=== PATIENT | female | born 1955 | race Caucasian/White ===

== ENCOUNTER 2016-08-20 07:05 | Observation (INO) ==
[2016-08-20] MEDS ORDERED: *HR* Morphine 2 MG/ML SYRINGE IVP ONE (07:24)
[2016-08-20] MEDS ORDERED: Ketorolac 30 MG/ML VIAL IVP ONE (07:24)
[2016-08-20] MEDS ORDERED: Ondansetron 4 MG/2 ML VIAL IVP ONE (07:24)
--- NOTE | 2016-08-20 07:27 | Emergency Department Note ---
Disposition Clinical Impression: Sigmoid diverticulitis, UTI (urinary tract infection) Disposition: Admitted As Inpatient Condition: Good Referrals: Madison Ambriz CNP [Primary Care Provider] - Forms: Work/School Release, ED Satisfaction Letter Time of Disposition: 08:43 Abdominal Pain HPI - General Chief Complaint: ED Abdominal Pain Stated Complaint: LLQ pain, pressure Time Seen by Provider: 08/20/16 07:20 Source: patient Mode of arrival: ambulatory Limitations: no limitations Nursing Notes Reviewed: Yes Vital Signs Reviewed: Yes - History of Present Illness HPI Narrative: 60 Year old female with LLQ abdomenal pain for 2 days, worse today. Nausea, no vomiting. No constipation or diarrhea. No fever. Pt Subjective Complaint: abdominal pain Onset (ago): day(s) (2) Consistency: constant Location: LLQ Pain Severity: severe Pain Scale: 10 Quality: sharp Radiation: back Migration to: no migration Improves with: nothing Worsens with: movement Associated symptoms: Reports: nausea. Denies: vomiting, diarrhea, fever, chills , constipation, dysuria Treatments prior to arrival: none - Related Data Home Medications Medication Instructions Recorded Confirmed Cetirizine HCl [All Day Allergy] 10 mg PO DAILY 05/07/16 08/20/16 Cholecalciferol (Vitamin D3) 1,000 unit PO DAILY 05/07/16 08/20/16 [Vitamin D3] Furosemide [Lasix] 40 mg PO DAILY 05/07/16 08/20/16 Garcinia Cambogia Chromium 1 cap PO DAILY 05/07/16 08/20/16 Ibuprofen [Motrin] 600 mg PO Q8HR PRN 05/07/16 08/20/16 Lisinopril [Zestril] 20 mg PO DAILY 05/07/16 08/20/16 Multivits,Ca,Min/Iron/FA/Lycop 1 tab PO DAILY 05/07/16 08/20/16 [Centrum Men's Tablet] Omeprazole [PriLOSEC] 40 mg PO DAILY 05/07/16 08/20/16 Potassium Chloride [K-Tab ER] 10 meq PO DAILY 05/07/16 08/20/16 Simvastatin [Zocor] 20 mg PO HS 05/07/16 08/20/16 Vitamin E 1,000 unit PO DAILY 05/07/16 08/20/16 Metformin [Glucophage] 500 mg PO BIDWM 08/20/16 08/20/16 Allergies Allergy/AdvReac Type Severity Reaction Status Date / Time latex AdvReac Itching Verified 08/20/16 07:07 Sulfa (Sulfonamide AdvReac See Verified 08/20/16 07:07 Antibiotics) Comments All systems ED: reviewed and negative except as stated. Constitutional: Denies: fever, chills ENT ED: Denies: ear pain, throat pain Cardiovascular: Denies: chest pain Respiratory: Denies: cough, dyspnea Gastrointestinal: Reports: abdominal pain, nausea. Denies: vomiting, diarrhea Genitourinary: Denies: urgency, dysuria, frequency, hematuria Musculoskeletal: Reports: back pain Integumentary: Denies: rash Abdominal Pain PMH - Past Medical History Medical history: Reports: arthritis, diabetes, GERD, hyperlipidemia, hypertension, other Female Surgical History: Reports: , cholecystectomy, herniorrhaphy, hysterectomy Psychiatric history: Reports: no psych history - Social History Smoking status: Never smoker Alcohol use: Reports: none, occasionally Drug use: Reports: none Physical Exam - General Limitations: no limitations General appearance: alert Course - Reevaluation(s) Reevaluation #1: Discussed with Dr. Cunningham. He has accepted the patient for admission. Time: 08:50 Vital Signs Temperature 100.1 F H 08/20/16 07:09 Pulse Rate 95 08/20/16 07:09 Respiratory Rate 18 08/20/16 07:09 Blood Pressure 126/73 08/20/16 07:09 O2 Sat by Pulse Oximetry 95 08/20/16 07:09 Temperature 100.1 F H 08/20/16 07:10 Pulse Rate 95 08/20/16 07:10 Respiratory Rate 18 08/20/16 07:10 Blood Pressure 126/73 08/20/16 07:10 O2 Sat by Pulse Oximetry 95 08/20/16 07:10 Oxygen Delivery Oxygen Delivery Room Air Abdominal Pain - MDM Narrative Medical decision making narrative: Differential includes but is not limited to urinary tract infection, diverticulitis, bowel obstruction, pyelonephritis, cystitis Exam and CT findings are consistent with acute uncomplicated diverticulitis. She does have low-grade fever and elevated white blood cell count. She has been started on IV Cipro and Flagyl. I spoke with Dr. Cunningham and he will accept for admission to a MedSurg bed for continued antibiotic therapy. The patient is agreeable with this plan. - Lab Data Lab results reviewed: Yes I reviewed the patient's lab results. Result diagrams: 08/20/16 07:38 08/20/16 07:38 Lab Results 08/20/16 08/20/16 08/20/16 Range/Units 07:22 07:22 07:38 WBC 16.5 H (4.3-11.1) K/mcL RBC 5.10 H (3.82-4.97) M/mcL Hgb 13.9 (11.5-15.4) g/dL Hct 42.2 (35.3-44.9) % MCV 82.7 L (83.0-100.0) fL MCH 27.3 L (28.0-33.3) pg MCHC 32.9 (31.6-35.5) g/dL RDW 14.1 (11.5-14.5) % Plt Count 215 (140-400) K/mcL MPV 10.8 (9.4-12.4) fL Immature Gran % 0.4 (0-4) % Seg Neutrophils % 81.1 % Lymphocytes % 12.2 % Monocytes % 5.7 % Eosinophils % 0.4 % Basophils % 0.2 % Neutrophils # 13.4 H (1.6-8.9) K/mcL Lymphocytes # 2.0 (0.6-4.6) K/mcL Monocytes # 0.9 (0.0-1.3) K/mcL Eosinophils # 0.1 (0.0-0.6) K/mcL Basophils # 0.0 (0.0-0.2) K/mcL Sodium (136-145) mEq/L Potassium (3.5-4.5) mEq/L Chloride (98-109) mEq/L Carbon Dioxide (19-29) mEq/L BUN (7-20) mg/dL Creatinine (0.57-1.11) mg/dL Est GFR ( Amer) (> 60) Est GFR (Non-Af Amer) (> 60) BUN/Creatinine Ratio (6-26) Glucose (70-99) mg/dL Calculated Osmolality (280-300) Calcium (8.6-10.8) mg/dL Total Bilirubin (0.2-1.2) mg/dL AST (5-34) Units/L ALT (0-55) Units/L Alkaline Phosphatase (38-126) Units/L Serum Total Protein (6.0-8.3) g/dL Albumin (3.5-5.0) g/dL Globulin (2.4-3.5) g/dL Albumin/Globulin Ratio (1.1-2.2) Lipase (8-78) Units/L Urine Color Yellow (Yellow) Urine Clarity Clear (Clear) Urine pH 5.5 (5.0-8.0) pH Units Ur Specific Lyons 1.025 (1.010-1.025) Urine Protein Negative (Neg-Trace) mg/dL Urine Glucose (UA) Normal (Normal) mg/dL Urine Ketones 80 H (Negative) mg/dL Urine Blood Negative (Negative) Urine Nitrite Negative (Negative) Urine Bilirubin Negative (Negative) Urine Urobilinogen Normal (Normal) mg/dL Ur Leukocyte Esterase Small H (Negative) Urine Microscopic WBC 5-15 H (0-3) per hpf Ur Squamous Epith Cells Few (None-Few) per lpf Urine Bacteria Few (None-Few) per hpf Urine Mucus Few (Few) Ur Culture Indicated? YES A (NO) Urine Test Negative (Negative) 08/20/16 Range/Units 07:38 WBC (4.3-11.1) K/mcL RBC (3.82-4.97) M/mcL Hgb (11.5-15.4) g/dL Hct (35.3-44.9) % MCV (83.0-100.0) fL MCH (28.0-33.3) pg MCHC (31.6-35.5) g/dL RDW (11.5-14.5) % Plt Count (140-400) K/mcL MPV (9.4-12.4) fL Immature Gran % (0-4) % Seg Neutrophils % % Lymphocytes % % Monocytes % % Eosinophils % % Basophils % % Neutrophils # (1.6-8.9) K/mcL Lymphocytes # (0.6-4.6) K/mcL Monocytes # (0.0-1.3) K/mcL Eosinophils # (0.0-0.6) K/mcL Basophils # (0.0-0.2) K/mcL Sodium 139 (136-145) mEq/L Potassium 3.8 (3.5-4.5) mEq/L Chloride 104 (98-109) mEq/L Carbon Dioxide 23 (19-29) mEq/L BUN 10 (7-20) mg/dL Creatinine 0.74 (0.57-1.11) mg/dL Est GFR ( Amer) > 60 (> 60) Est GFR (Non-Af Amer) > 60 (> 60) BUN/Creatinine Ratio 14 (6-26) Glucose 136 H (70-99) mg/dL Calculated Osmolality 289 (280-300) Calcium 9.7 (8.6-10.8) mg/dL Total Bilirubin 0.7 (0.2-1.2) mg/dL AST 18 (5-34) Units/L ALT 20 (0-55) Units/L Alkaline Phosphatase 66 (38-126) Units/L Serum Total Protein 7.7 (6.0-8.3) g/dL Albumin 3.7 (3.5-5.0) g/dL Globulin 4.0 H (2.4-3.5) g/dL Albumin/Globulin Ratio 0.9 L (1.1-2.2) Lipase 13 (8-78) Units/L Urine Color (Yellow) Urine Clarity (Clear) Urine pH (5.0-8.0) pH Units Ur Specific Lyons (1.010-1.025) Urine Protein (Neg-Trace) mg/dL Urine Glucose (UA) (Normal) mg/dL Urine Ketones (Negative) mg/dL Urine Blood (Negative) Urine Nitrite (Negative) Urine Bilirubin (Negative) Urine Urobilinogen (Normal) mg/dL Ur Leukocyte Esterase (Negative) Urine Microscopic WBC (0-3) per hpf Ur Squamous Epith Cells (None-Few) per lpf Urine Bacteria (None-Few) per hpf Urine Mucus (Few) Ur Culture Indicated? (NO) Urine Test (Negative) - Radiology Data Radiology results reviewed: Yes I reviewed the patient's radiology results. ITS Impressions Abdomen/Pelvis CT 08/20/16 07:22 IMPRESSION: *Sigmoid diverticulitis. No evidence of abscess or free intraperitoneal air. Recommend follow-up at resolution of patient's acute issues as an underlying sigmoid mass cannot be excluded. D/ /20/2016 08:26:04 Cash Hook MD / [email or web address] Interpreting Provider: Cash Hook MD
[2016-08-20 07:48] LABS: Bilirubin,Urine Negative (Negative); Blood,Urine Negative (Negative); Clarity,Urine Clear (Clear); Color,Urine Yellow (Yellow); Glucose,Urine (UA) Normal (Normal); Ketones,Urine 80 mg/dL (Negative); Leukocyte Esterase,Urine Small (Negative); Nitrite,Urine Negative (Negative); PH,Urine 5.5 pH Units (5.0-8.0); Protein,Urine Negative (Neg-Trace); Specific Gravity,Urine 1.025 (1.010-1.025); Urobilinogen,Urine Normal (Normal)
[2016-08-20 07:49] LABS: Basophils % 0.2 %; Eosinophils # 0.1 K/mcL (0.0-0.6); Eosinophils % 0.4 %; Hematocrit 42.2 % (35.3-44.9); Hemoglobin 13.9 g/dL (11.5-15.4); Immature Granulocytes % 0.4 % (0-4); Lymphocytes % 12.2 %; Mean Corpuscular HGB Conc 32.9 g/dL (31.6-35.5); Mean Corpuscular Hemoglobin 27.3 pg (28.0-33.3); Mean Corpuscular Volume 82.7 fL (83.0-100.0); Mean Platelet Volume 10.8 fL (9.4-12.4); Monocytes # 0.9 K/mcL (0.0-1.3); Monocytes % 5.7 %; Neutrophils # 13.4 K/mcL (1.6-8.9); Platelet Count 215 K/mcL (140-400); Red Cell Distribution Width 14.1 % (11.5-14.5); Segmented Neutrophils % 81.1 %
[2016-08-20 07:58] LABS: Bacteria,Urine Few per hpf (None-Few); Mucus,Urine Few (Few); Squamous Epithelial Cell,Urine Few per lpf (None-Few)
[2016-08-20 08:03] LABS: Alanine Aminotransferase 20 Units/L (0-55); Albumin 3.7 g/dL (3.5-5.0); Albumin/Globulin Ratio 0.9 (1.1-2.2); Alkaline Phosphatase 66 Units/L (38-126); Aspartate Amino Transferase 18 Units/L (5-34); BUN/Creatinine Ratio 14 (6-26); Bilirubin,Total 0.7 mg/dL (0.2-1.2); Blood Urea Nitrogen 10 mg/dL (7-20); Calcium 9.7 mg/dL (8.6-10.8); Carbon Dioxide 23 mEq/L (19-29); Chloride 104 mEq/L (98-109); Glucose 136 mg/dL (70-99); Lipase 13 Units/L (8-78); Osmolality,Calculated 289 (280-300); Potassium 3.8 mEq/L (3.5-4.5); Sodium 139 mEq/L (136-145); Total Protein 7.7 g/dL (6.0-8.3); eGFR For African Americans > 60 (> 60); eGFR For Non-African Americans > 60 (> 60)
[2016-08-20] MEDS ORDERED: MetroNIDAZOLE 500 MG/100 ML 500 MG/100 ML BAG IVPB ONE ×2 (08:27→09:30)
[2016-08-20] MEDS ORDERED: Ondansetron 4 MG/2 ML VIAL IVP PRN (09:30)
[2016-08-20] MEDS ORDERED: Naloxone 0.4 MG/ML INJ IVP PRN (09:30)
[2016-08-20] MEDS ORDERED: GARCINIA CAMBOGIA PO SCH (09:30)
[2016-08-20] MEDS: MetroNIDAZOLE 500 MG/100 ML 500 MG/100 ML BAG IVPB SCH ×3 (09:52→21:56)
[2016-08-20] MEDS: Cholecalciferol (D-3) 1,000 UNIT TABLET PO SCH (10:08)
[2016-08-20] MEDS: Lisinopril 20 MG TABLET PO SCH (10:08)
[2016-08-20] MEDS: Multivit/Ca/Min/Fe/FA 1 TAB TABLET PO SCH (10:08)
[2016-08-20] MEDS: Loratadine 10 MG TABLET PO SCH (10:09)
[2016-08-20] MEDS: Furosemide 40 MG TABLET PO SCH (10:09)
[2016-08-20] MEDS: *HR* Metformin 500 MG TABLET PO SCH ×2 (12:37→18:20)
--- NOTE | 2016-08-20 14:57 | Internal Med History&Physical ---
Date of Encounter: 08/20/16 Time of Encounter: 14:30 Assessment and Plan (1) Sigmoid diverticulitis Current visit: Yes Status: Acute She has been started on IV Cipro and Flagyl. She will remain on clear liquid diet. Repeat labs will be done in a.m. (2) UTI (urinary tract infection) Current visit: Yes Status: Acute Urine culture pending. Continue Cipro. Qualifiers: Urinary tract infection type: site unspecified Hematuria presence: without hematuria Qualified Code(s): N39.0 - Urinary tract infection, site not specified (3) Hypertension Current visit: Yes Status: Chronic Continue lisinopril, Lasix, and potassium. Qualifiers: Hypertension type: essential hypertension Qualified Code(s): I10 - Essential (primary) hypertension Internal Medicine - H&P: HPI Chief complaint: Fevers, chills, LLQ pain Admitted From: Home Plans for Post Hospital Care: Home History of present illness: Ms. Corona is a 60 year old female who came to emergency room stating she had 2 day history of fevers and chills with left lower quadrant abdominal pain. She denies melena or hematochezia. She was evaluated in emergency room and found to have evidence of sigmoid diverticulitis. She was admitted to [facility] floor for ongoing care needs. She denies previous episodes of diverticulitis. She has had cholecystectomy. She denies disorders of her liver or exocrine pancreas. Past Med Surg Social Fam HX - Past Medical History Medical history: arthritis, diabetes, GERD, hyperlipidemia, hypertension, other Psychiatric history: no psych history - Social History Smoking Status: Never smoker Smokeless Tobacco Status: No Alcohol use: none, occasionally Drug use: none Internal Medicine - H&P: Meds Cetirizine HCl [All Day Allergy] 10 mg PO DAILY 05/07/16 [History] Cholecalciferol (Vitamin D3) [Vitamin D3] 1,000 unit PO DAILY 05/07/16 [History] Furosemide [Lasix] 40 mg PO DAILY 05/07/16 [History] Garcinia Cambogia Chromium 1 cap PO DAILY 05/07/16 [History] Ibuprofen [Motrin] 600 mg PO Q8HR PRN 05/07/16 [History] Lisinopril [Zestril] 20 mg PO DAILY 05/07/16 [History] Multivits,Ca,Min/Iron/FA/Lycop [Centrum Men's Tablet] 1 tab PO DAILY 05/07/16 [ History] Omeprazole [PriLOSEC] 40 mg PO DAILY 05/07/16 [History] Potassium Chloride [K-Tab ER] 10 meq PO DAILY 05/07/16 [History] Simvastatin [Zocor] 20 mg PO HS 05/07/16 [History] Vitamin E 400 unit PO DAILY 05/07/16 [History] Metformin [Glucophage] 500 mg PO BIDWM 08/20/16 [History] Allergies latex Adverse Reaction (Verified 08/20/16 07:07) Itching Sulfa (Sulfonamide Antibiotics) Adverse Reaction (Verified 08/20/16 07:07) See Comments unknown All Systems PM: A 10-system review of systems was performed and is negative for pertinent findings except as documented above in the HPI. Review of systems: Gen.: She states her weight has been stable the past few months Cardiovascular: She has history of hypertension but denies MD heart failure angina DVT or pulmonary embolus. Respiratory: She is a lifelong nonsmoker and has no known chronic lung disease GI: As per history of present illness : She denies hematuria dysuria or kidney stones Neurologic: She denies large distribution strokes or seizures Endocrine: She states she was started on metformin a few weeks ago when hemoglobin A1c returned at 6.1%. She has history of hyperlipidemia. She denies thyroid disease Hematology/oncology: She denies blood disorders cancers or anemia Psychiatric: She denies anxiety depression other mental health issues Musk skeletal: She has DJD but no known gout or other bone joint or muscle disorders. - Constitutional Vitals: Temp Pulse Resp BP Pulse Ox 98.6 F 82 18 117/74 96 08/20/16 10:21 08/20/16 10:21 08/20/16 10:21 08/20/16 10:21 08/20/16 10:21 Exam: Gen.: She is a well-developed well-nourished female who appears in no severe distress at rest HEENT: Head is atraumatic and normocephalic. Eyes: EOMI. There is no scleral icterus. Mouth: Mucosa is moist. Neck: Supple and nontender. There is no thyromegaly or adenopathy noted. Heart: Regular without murmurs gallops or ectopics. Lungs: No wheezes or crackles are heard. Abdomen: Bowel sounds are diminished. There is [id number] tenderness to palpation in the left abdominal area. No masses or guarding noted. Extremities: There is no cyanosis edema or clubbing noted. Dorsalis pedis and posttibial pulses are 1-2 over 2 bilaterally. Neurologic: Mental status: She is talkative and a good historian. Cranial nerves: Smile is symmetric. Forehead wrinkles bilaterally. Tongue protrudes midline. EOMI. Motor: There is no pronator drift. Cerebellar: Finger to nose is intact bilaterally. Skin: Warm and dry Internal Med - H&P Results - Labs CBC & Chem 7: 08/20/16 07:38 08/20/16 07:38
[2016-08-21] MEDS: MetroNIDAZOLE 500 MG/100 ML 500 MG/100 ML BAG IVPB SCH ×2 (05:37→09:27)
[2016-08-21] MEDS: *HR* Morphine 2 MG/ML SYRINGE IVP PRN ×2 (05:51→12:35)
[2016-08-21 06:56] VITALS: BP 104/64
[2016-08-21] MEDS: Multivit/Ca/Min/Fe/FA 1 TAB TABLET PO SCH (09:25)
[2016-08-21] MEDS: *HR* Metformin 500 MG TABLET PO SCH (09:26)
[2016-08-21] MEDS: Lisinopril 20 MG TABLET PO SCH (09:26)
[2016-08-21] MEDS: Cholecalciferol (D-3) 1,000 UNIT TABLET PO SCH (09:26)
[2016-08-21] MEDS: Loratadine 10 MG TABLET PO SCH (09:26)
[2016-08-21] MEDS: Furosemide 40 MG TABLET PO SCH (09:26)
--- NOTE | 2016-08-21 09:28 | Discharge Summary ---
Date of Encounter: 08/21/16 Time of Encounter: 09:23 - Discharge Diagnosis (1) Sigmoid diverticulitis Priority: Primary Status: Acute (2) UTI (urinary tract infection) Priority: Secondary Status: Acute Comments: Urine culture was negative. Will continue oral antibiotic regimen for acute diverticulitis. Qualifiers: Urinary tract infection type: site unspecified Hematuria presence: without hematuria Qualified Code(s): N39.0 - Urinary tract infection, site not specified - Discharge Medications Prescriptions: Ciprofloxacin HCl [Cipro] 500 mg PO BID #14 tablet MetroNIDAZOLE [Metronidazole] 500 mg PO TID #21 tablet Home Medications: Cetirizine HCl [All Day Allergy] 10 mg PO DAILY 05/07/16 [History] Cholecalciferol (Vitamin D3) [Vitamin D3] 1,000 unit PO DAILY 05/07/16 [History] Furosemide [Lasix] 40 mg PO DAILY 05/07/16 [History] Garcinia Cambogia Chromium 1 cap PO DAILY 05/07/16 [History] Ibuprofen [Motrin] 600 mg PO Q8HR PRN 05/07/16 [History] Lisinopril [Zestril] 20 mg PO DAILY 05/07/16 [History] Multivits,Ca,Min/Iron/FA/Lycop [Centrum Men's Tablet] 1 tab PO DAILY 05/07/16 [ History] Omeprazole [PriLOSEC] 40 mg PO DAILY 05/07/16 [History] Potassium Chloride [K-Tab ER] 10 meq PO DAILY 05/07/16 [History] Simvastatin [Zocor] 20 mg PO HS 05/07/16 [History] Vitamin E 400 unit PO DAILY 05/07/16 [History] Metformin [Glucophage] 500 mg PO BIDWM 08/20/16 [History] Ciprofloxacin HCl [Cipro] 500 mg PO BID #14 tablet 08/21/16 [Rx] MetroNIDAZOLE [Metronidazole] 500 mg PO TID #21 tablet 08/21/16 [Rx] Allergies/Adverse Reactions: Allergies latex Adverse Reaction (Verified 08/20/16 07:07) Itching Sulfa (Sulfonamide Antibiotics) Adverse Reaction (Verified 08/20/16 07:07) See Comments unknown Procedures/tests Complete & Pending: ITS Impressions Abdomen/Pelvis CT 08/20/16 07:22 IMPRESSION: *Sigmoid diverticulitis. No evidence of abscess or free intraperitoneal air. Recommend follow-up at resolution of patient's acute issues as an underlying sigmoid mass cannot be excluded. D/ / 08/20/2016 08:26:04 Cash Hook MD / [email or web address] Interpreting Provider: Cash Hook MD - Notes to Outpatient Provider A colonoscopy has been recommended in 1-2 months to rule out underlying sigmoid mass. Patient is aware of this. Date of admission: 08/20/16 09:00 Primary care physician: Madison Ambriz, Consults: None Discharging clinician: Rashad Schneider Anticipated date of discharge: 08/21/16 - Patient Status Disposition: Home, Self-Care Condition: Good Functional capacity at discharge: independent ambulation Overall status at discharge: patient is back to baseline - Discharge Instructions Follow Up With: Madison Ambriz CNP [Primary Care Provider] - 1 week - Diet and Activity Activity: increase activity as tolerated Diet: advance to your usual diet Interval History: Pt had no significant events overnight. She is tolerate po and ambulating. BMs normal. Pt notes significant improvement of abdominal pain with IV antibiotics. She is without acute complaints. Hospital course: Ms. Corona is a 60 year old female that presented to ER with acute LLQ abdominal pain. Pt was found to have a leukocytosis along with acute sidmoid diverticulitis documented by CT scan. Pt was placed on liquid diet and given IV fluids and IV antibiotics. Pt subsequently improved. On day of discharge, pt was tolerating PO and deemed medically stable to proceed with oral ambulatory antibiotic regimen. She has been advised to f/u with PCP in 1 week and take antibiotics as directed. A colonoscopy has been recommended in 1-2 months to rule out underlying sigmoid mass. Patient is aware of this. - Time Spent with Patient Total time spent providing and/or coordinating discharge services: Less than 30 minutes - Constitutional Vitals: Temp Pulse Resp BP Pulse Ox 98.4 F 80 18 104/64 94 08/21/16 06:54 08/21/16 06:54 08/21/16 06:54 08/21/16 06:54 08/21/16 06:54 Exam: Gen: Lying in bed, NAD HEENT: NC, AT Neck: Trachea midline, no mass Pulm: No respiratory distress, CTAB CV: Normal S1 and S2, RRR Abdomen: Soft, ND, NT Ext: No C/C/E Neuro: No appreciable motor/sensor deficits Skin: Warm and dry, no rash Psych: A&Ox3
== END 2016-08-21 14:11 | disposition home or self-care (01) ==
LOC: EMEROOPIK 07:05 → INPPIK 07:05
PROVIDERS: ADMIT Internal Medicine; ATTEND Internal Medicine